=== PATIENT | male | born 1960 | race Two or more races ===

== ENCOUNTER 2024-09-30 09:04 | Emergency (ER) | payer OTHER, MEDICAID, SELFPAY ==
[2024-09-30 09:05] VITALS: BMI 42.5
[2024-09-30 09:35] VITALS: BP 126/82; PULSE 117; RESP 18; TEMP 37.3; O2SAT 97
--- NOTE | 2024-09-30 09:45 | XR_ITS ---
Examination: CT abdomen with intravenous contrast CT pelvis with intravenous contrast 2-D coronal reconstructions 2-D sagittal reconstructions Date and time of exam:September 30, 2024 1325 hours INDICATIONS: Lower abdominal pain with nausea beginning 3 days ago COMPARISON: May 12, 2024 INDICATIONS: History acute diverticulitis with abdominal abscesses, onset lower abdominal pain with nausea beginning 3 days ago. CTDI: vol (mGy) 13.1 DLP: (mGycm) 858 Technique: Multiple axial sections of the abdomen and pelvis have been obtained. 64 slice high-resolution scanner used. 3 mm axial sections have been obtained, post intravenous injection 60 cc [id number] 2-D sagittal, coronal reconstructions obtained. Low dose protocols were performed. One or more of the following dose reduction techniques were used; automated exposure control, adjustment of the mA and/or KV according to patient size, use of iterative reconstruction technique. Findings: No focal liver or splenic lesions Contrast in the stomach, clinical correlation advised No gallstones No pancreatic or adrenal mass Mild right hydronephrosis without definite ureteral calculi No pericecal inflammatory change Marked wall thickening in the sigmoid colon with inflammatory change No definite abscess Mild thickening of urinary bladder wall IMPRESSION: Marked abnormal thickening sigmoid colon with inflammatory change and diverticula, consider acute diverticulitis, underlying malignant neoplasm of the colon not excluded No peridiverticular abscess at this time
--- NOTE | 2024-09-30 09:45 | PD.EDRME ---
Rapid Medical Screening Exam RME Arrival date/time: 09/30/24 09:04 63-year-old male with history of diabetes, anal fistula presents to the Emergency Department today stating he has had fever and passing stool through his urine Chief Complaint: Urogenital-Male Vital signs: Vital Signs Temperature 99.2 F 09/30/24 09:35 Pulse Rate 117 H 09/30/24 09:35 Respiratory Rate 18 09/30/24 09:35 Blood Pressure 126/82 09/30/24 09:35 Pulse Oximetry (%) 97 09/30/24 09:35 Oxygen Delivery Method Room Air 09/30/24 09:35
[2024-09-30 10:05] LABS: Collection Type, Urine Clean Catch; Squamous Epithelial Cell,Urine 0 /hpf (0-5)
[2024-09-30 10:50] LABS: Bacteria,Urine 4+; Bilirubin,Urine Negative (Negative); Blood,Urine 2+ (Negative); Color,Urine Yellow (Lt Yel-Yel); Glucose, Urine 4+ (Negative); Ketones,Urine Negative (Negative); Leukocyte Esterase,Urine Positive (Negative); Nitrite,Urine Negative (Negative); PH,Urine 6.5 (5.0-7.0); Protein,Urine 1+ (Neg - Trace); RBC,Urine 21 /hpf (0-3); Specific Gravity,Urine 1.015 (1.001-1.035); Urobilinogen,Urine Negative mg/dL (0.0-1.0); WBC,Urine 449 /hpf (0-5)
[2024-09-30 10:54] LABS: Clarity,Urine Turbid (Clear/Hazy)
[2024-09-30 11:34] LABS: Lactate (Lactic Acid) 1.8 mMol/L (0.4-2.0)
[2024-09-30 11:39] LABS: Basophils % (Auto) 0 % (0-2.5); Eosinophils # (Auto) 0.1 Thou/mm3 (0.0-0.5); Eosinophils % (Auto) 1 % (0-10); Hematocrit 38.6 % (41.0-53.0); Immature Granulocytes % (Auto) 0 % (0-0); Immature Granulocytes Auto 0.06 Thou/mm3 (0.00-0.00); Lymphocytes # (Auto) 2.6 Thou/mm3 (1.0-4.8); Lymphocytes % (Auto) 19 % (10-50); Mean Corpuscular HGB Conc 33.7 g/dl (31.0-37.0); Mean Corpuscular Volume 86 fL (80-100); Monocytes # (Auto) 1.4 Thou/mm3 (0.0-0.8); Monocytes % (Auto) 10 % (0-12); Neutrophils # (Auto) 9.4 Thou/mm3 (1.8-7.7); Neutrophils % (Auto) 69 % (37-80); Nucleated Red Blood Cell % 0 /100 WBC (0); Platelet Count 270 Thou/mm3 (140-440); RDW Standard Deviation 44.1 fL (35.1-43.9); Red Blood Count 4.48 Miln/mm3 (4.50-5.90); White Blood Count 13.6 Thou/mm3 (3.8-10.6)
[2024-09-30 12:08] LABS: Glucose Estimated Average 105 mg/dL (80-131); Hemoglobin A1C 5.3 % Hgb (4.8-6.0)
[2024-09-30 12:11] VITALS: BP 122/81; PULSE 112; RESP 18; TEMP 37.3; O2SAT 96
--- NOTE | 2024-09-30 12:24 | PD.EDMALE ---
ED Male Genitalurinary RME/HPI General Chief complaint: Urogenital-Male Stated complaint: Pt. 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 This been ongoing for the last 3 days. Patient also complained of on and off low-grade fever. Patient denies any vomiting. Denies any abdominal pain. Denies any other complaints no medications taken prior to arrival. Was seen and followed by Dr. Maya and Dr. Nuñez. Patient had a plan surgery and [facility] that was postponed due to medical clearance problem. Last year. Related Data Home Medications ?Medication ?Instructions ?Recorded ?Confirmed allopurinol 300 mg tablet 300 mg PO DAILY ##0 10/15/12 09/30/24 (Zyloprim) aripiprazole 5 mg tablet (Abilify) 5 mg PO DAILY ##0 10/15/12 09/30/24 ziprasidone HCl 80 mg capsule 80 mg PO BID ##0 10/15/12 09/30/24 (Geodon) venlafaxine 150 mg 150 mg PO BID ##0 12/16/23 09/30/24 capsule,extended release 24 hr (Effexor XR) aripiprazole 30 mg tablet 30 mg PO DAILY 09/30/24 09/30/24 empagliflozin 5 mg-metformin 500 1 tab PO BID 09/30/24 09/30/24 mg tablet (Synjardy) lovastatin 40 mg tablet 40 mg PO DAILY 09/30/24 09/30/24 meloxicam 15 mg tablet 15 mg PO DAILY 09/30/24 09/30/24 Previous Rx's ?Medication ?Instructions ?Recorded ciprofloxacin HCl 500 mg tablet 500 mg PO BID #14 tabs 09/30/24 ibuprofen 800 mg tablet 800 mg PO Q8H PRN pain #30 tabs 09/30/24 Allergies Allergy/AdvReac Type Severity Reaction Status Date / Time No Known Allergies Allergy Verified 12/30/23 13:33 Review of Systems Review of Systems Narrative Review of Systems: Review of system reviewed and within normal limits except mentioned in HPI ED Exam Narrative Physical exam: VITAL SIGNS: Reviewed. GENERAL APPEARANCE: Alert and interactive, follows commands, no acute distress, HEAD AND FACE: Non-traumatic. ENT: PERRL, pink conjunctivitis, eyelid no trauma, Mucous membrane moist. NECK: Supple, nontender, no nuchal rigidity. CHEST: No tenderness, no crepitus, no paradoxical movement, no retractions. LUNGS: Clear, well ventilated, symmetric, no rales, no wheezing, no ronchi, no stridor, good breath sounds bilaterally. HEART: Regular rate, regular rhythm, no murmur, no gallops. ABDOMEN: Soft, positive bowel sounds, nondistended, no guarding, nontender, no rebound, no masses, RECTAL: Deferred. GENITAL: Deferred. NEUROLOGICAL: Gross motor function intact sensory function intact, Appropriate for age. MUSCULOSKELETAL: low back nontender, full range of motion. EXTREMITIES: Nontender, full range of motion. SKIN: Color pink, dry, no rash, no lacerations, no abrasions, no contusions. LYMPHATICS: Deferred. Course Quality Measures none Orders Category Date Time Status CT Screening NOW Care 09/30/24 09:[address] abdomen pelvis w con Stat Exams 09/30/24 09:45 Completed A1C [Glycohemoglobin w (eAG)] Stat Lab 09/30/24 11:12 Completed Blood Culture (Lab) Stat Lab 09/30/24 11:10 Received CBC Stat Lab 09/30/24 11:12 Completed Comprehensive Metabolic Panel Stat Lab 09/30/24 11:12 Completed Lactate (Lactic Acid) Stat Lab 09/30/24 11:12 Completed Lipase Stat Lab 09/30/24 11:12 Completed Procalcitonin Stat Lab 09/30/24 11:12 Completed Urinalysis Stat Lab 09/30/24 09:54 Completed Urine Culture Stat Lab 09/30/24 09:54 Received Piper/Tazo Inj [Zosyn Inj] 3.375 gm Med 09/30/24 12:24 Discontinued SODIUM CHLORIDE 0.9% (Popper) [Ns 0.9% (P)] 50 ml IV X1 Potassium Chloride [K-Dur] Med 09/30/24 12:41 Discontinued 40 meq PO X1 ONE Sodium Chloride 0.9% 1000 ml [Ns] 1,000 ml Med 09/30/24 12:24 Discontinued IV 999 mls/hr Vital Signs Vital signs: Vital Signs Temperature 99.2 F 09/30/24 09:35 Pulse Rate 117 H 09/30/24 09:35 Respiratory Rate 18 09/30/24 09:35 Blood Pressure 126/82 09/30/24 09:35 Pulse Oximetry (%) 97 09/30/24 09:35 Oxygen Delivery Method Room Air 09/30/24 09:35 Urogenital - Male [facility] Narrative [facility] Narrative:: 63-year-old male patient with 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 This been ongoing for the last 3 days. Patient also complained of on and off low-grade fever. Patient denies any vomiting. Denies any abdominal pain. Denies any other complaints no medications taken prior to arrival. Was seen and followed by Dr. Maya and Dr. Nuñez. Patient had a plan surgery and [facility] that was postponed due to medical clearance problem. Last year. Laboratory workup significant for UTI. Potassium 3.0. CT scan of the abdomen and pelvis showed Marked abnormal thickening sigmoid colon with inflammatory change and diverticula, consider acute diverticulitis, underlying malignant neoplasm of the colon not excluded No peridiverticular abscess at this time Results discussed with the patient. Patient received IV fluids, IV Zosyn, I consulted Dr. Nuñez, general surgeon on-call, who is the surgeon of this patient, and told me to give IV antibiotic and send the patient home on p.o. antibiotic and asked the patient to follow-up with [facility] surgeon . Patient data External records reviewed:: None Clinical information provided by:: none Social determinants that could affect healthcare access:: none Patient has the following chronic illnesses:: History of colovesical fistula How is presenting disease/condition affected by chronic disease/condition?: caused by Evaluation data The following diagnostics were reviewed and interpreted by me:: lab results and radiology exam(s) Lab and/or radiology exams considered but not ordered:: None Interpretation Summary: See results in [facility] Medications / Prescriptions Medications or Prescriptions considered but not ordered:: None Medication administrations:: Medication Administration History Discontinued Medications Sodium Chloride (Ns) 1,000 mls @ 999 mls/hr IV .Q1H1M ONE Stop: 09/30/24 13:24 Last Admin: 09/30/24 13:09 Dose: 999 mls/hr Documented By: ANI Piperacillin Sod/Tazobactam (Sod 3.375 gm/ Sodium Chloride) 50 mls @ 100 mls/hr IV X1 ONE Stop: 09/30/24 12:53 Last Infusion: 09/30/24 14:20 Dose: Infused Documented By: Admin: 09/30/24 13:11 Dose: 100 mls/hr Documented By: ANI Potassium Chloride (Potassium Chloride 20 Meq Tabcr) 40 meq PO X1 ONE Stop: 09/30/24 12:42 Last Admin: 09/30/24 13:08 Dose: 40 meq Documented By: ANI Potassium replacement, Zosyn and IV fluids Consultations Consultation(s) initiated? (list below): Yes Consultation #1 (Physician, Specialty, Details): I consulted Dr. Nuñez, general surgeon on-call, discussed the case, and thank you Dr. Diagnosis Urogenital Male Differential Diagnosis: urinary tract infection and urethritis Most likely diagnosis given after review of the tests above:: UTI, colo vesical fistula Admission Indicated Admission indicated?: not indicated Explain why admission is indicated or not indicated:: Stable Admission Request Was there a request for admission?: No Disposition Plan Disposition Plan: Discharge Discharge Attestation Discharge Attestation: The patient and all family members were given an opportunity to ask questions and understood the discharge instructions. Discharge instructions specifically effects, indications for sooner follow up or return to the emergency department, and the expected course of current diagnosis. Patient condition: Stable Discharge Plan Plan Patient Disposition: HOME (Self Care) Disposition Comment: stable Prescriptions/Referrals Prescriptions/Med Rec: New ciprofloxacin HCl 500 mg tablet 500 mg PO BID Qty: 14 0RF ibuprofen 800 mg tablet 800 mg PO Q8H PRN (Reason: pain) Qty: 30 0RF No Action ziprasidone HCl [Geodon] 80 MG capsule 80 mg PO BID Qty: 0 allopurinol [Zyloprim] 300 MG tablet 300 mg PO DAILY Qty: 0 aripiprazole [Abilify] 5 MG tablet 5 mg PO DAILY Qty: 0 venlafaxine [Effexor XR] 150 mg capsule,extended release 24hr 150 mg PO BID Qty: 0 aripiprazole 30 mg tablet 30 mg PO DAILY Patient Comments: TAKE 1 TABLET BY MOUTH EVERY DAY meloxicam 15 mg tablet 15 mg PO DAILY Patient Comments: TAKE 1 TABLET DAILY Synjardy 5-500 mg tablet 1 tab PO BID lovastatin 40 mg tablet 40 mg PO DAILY Patient Comments: TAKE 1 TABLET DAILY Referrals: Debby Pat, SUSTAINABLE SYSTEMS ANALYST [Primary Care Provider] - In 1 week Problem List Clinical Impression: Colovesical fistula, Urinary tract infection Patient/Caregiver Discharge Instructions Discharge Activity: activity as tolerated Education Materials: Understanding Urinary Tract ... Additional Instructions: Thank you for the opportunity for serving you today. You are stable for discharged . You are advised to: Follow-up with [facility], Dr. Torres, as instructed Return to ED for worsening of symptoms Increase oral fluids Take medication as prescribed Print Language: Belarusian Stand Alone Forms: Suzanne Award Info., Patient Portal Info Letter PA/DOG FOOD SHREDDER OPERATOR Supervising Physician PA/DOG FOOD SHREDDER OPERATOR Supervising Physician: MD Sharmaine
[2024-09-30 12:31] LABS: Alanine Aminotransferase 7 U/L (10-49); Albumin, Serum 3.9 gm/dL (3.4-4.8); Albumin/Globulin Ratio 0.9 (1.2-2.2); Alkaline Phosphatase 152 U/L (46-116); Anion Gap 8 (7-16); Aspartate Amino Transferase 10 U/L (0-34); BUN/Creatinine Ratio 13 Ratio (12-20); Bilirubin,Total < 0.2 mg/dL (0.3-1.2); Blood Urea Nitrogen 13 mg/dL (9-23); Calcium 9.4 mg/dL (8.3-10.6); Calcium (Corrected) 9.5 mg/dL (8.5-10.1); Carbon Dioxide 27.2 mMol/L (20.0-31.0); Chloride 100 mMol/L (98-107); Estimated Creatinine Clearance 84.2 mL/min (>60); Globulin 4.2 gm/dL (2.3-3.5); Glucose 85 mg/dL (74-106); Lipase 27 U/L (12-53); Osmolality,Calculated 269 (275-295); Procalcitonin 0.56 ng/ml (0.0-0.49); Sodium 135 mMol/L (136-145); Total Protein 8.1 gm/dL (5.7-8.2); eGFR > 60 See Note
[2024-09-30] MEDS: POTASSIUM CHLORIDE 20 mEq TABCR 40 MEQ PO (13:08)
[2024-09-30] MEDS: SODIUM CHLORIDE 0.9% 1000 ML 1,000 ML 999 ML IV (13:09)
[2024-09-30] MEDS: PIPER/TAZO INJ 3.375 GM in SODIUM CHLORIDE 0.9% (Popper) 50 ML IV (13:11)
[2024-09-30 13:29] VITALS: BP 123/84; PULSE 83; RESP 18; TEMP 37.1; O2SAT 96
[2024-09-30 14:25] VITALS: BP 128/85; PULSE 88; RESP 18; TEMP 37.1; O2SAT 96
[2024-09-30 15:46] VITALS: BP 134/87; PULSE 80; RESP 18; TEMP 37.2; O2SAT 97
== END 2024-09-30 15:49 | disposition home or self-care (01) ==
PROVIDERS: Nurse Practitioner Primary Care; Emergency Provider Emergency Medicine; PCP Nurse Practitioner Family
DX: N32.1 Vesicointestinal fistula (principal); N39.0 Urinary tract infection, site not specified
CPT/HCPCS: 36415; 74177; 80053; 81001; 83036; 83605; 83690; 84145; 85025; 87040; 87077; 87086; 87186; 96361; 96365; 99285; A4649; J2543; J7030; J7050; Q9967; A9270

== ENCOUNTER → 2024-11-08 | Outpatient (BNVA) | payer OTHER, MEDICAID, SELFPAY | END | disposition home or self-care (01) | PROVIDERS: PCP Nurse Practitioner Family; Referring Provider Nurse Practitioner Family; Visit Provider Urology | DX: N40.1 Benign prostatic hyperplasia with lower urinary tract symptoms (principal); N13.8 Other obstructive and reflux uropathy; K57.92 Diverticulitis of intestine, part unspecified, without perforation or abscess without bleeding; F31.9 Bipolar disorder, unspecified; K63.0 Abscess of intestine; N32.1 Vesicointestinal fistula; Z87.440 Personal history of urinary (tract) infections; E78.00 Pure hypercholesterolemia, unspecified; E11.9 Type 2 diabetes mellitus without complications; Z87.891 Personal history of nicotine dependence | CPT/HCPCS: 99212; G0463 ==

== ENCOUNTER 2024-11-24 10:30 | Outpatient (AMB) | payer OTHER, MEDICAID, SELFPAY ==
[2024-11-24 10:37] VITALS: BP 111/76; PULSE 107; RESP 19; TEMP 36.3; O2SAT 96; BMI 37.3
--- NOTE | 2024-11-24 10:37 | PD.GSCLVISIT ---
Vital Signs - [facility] 11/24/24 10:37 Height 1.6 m Height Method Stated Weight 95.424 kg Weight Measurement Method Standing Scale BMI 37.3 BP 111/76 Blood Pressure Source Automatic Cuff Blood Pressure Location Right Upper Arm Position Sitting Respiration 19 Pulse 107 H Pulse Source Monitor Temp 97.3 F Temp Source Temporal Artery Scan Pulse Oximetry (%) 96 Oxygen Delivery Method Room Air Med/Allergies Allergies & Medications Allergies No Known Allergies Allergy (Verified 11/24/24 10:37) Medication Reconciliation allopurinol 300 mg tablet (Zyloprim) 300 mg PO DAILY ##0 10/15/12 [History Confirmed 11/24/24] ziprasidone HCl 80 mg capsule (Geodon) 80 mg PO BID ##0 10/15/12 [History Confirmed 11/24/24] aripiprazole 30 mg tablet 30 mg PO DAILY 09/30/24 [History Confirmed 11/24/24] ciprofloxacin HCl 500 mg tablet 500 mg PO BID #14 tabs 09/30/24 [Rx Confirmed 11/24/24] empagliflozin 5 mg-metformin 500 mg tablet (Synjardy) 1 tab PO BID 09/30/24 [History Confirmed 11/24/24] ibuprofen 800 mg tablet 800 mg PO Q8H PRN pain #30 tabs 09/30/24 [Rx Confirmed 11/24/24] lovastatin 40 mg tablet 40 mg PO DAILY 09/30/24 [History Confirmed 11/24/24] meloxicam 15 mg tablet 15 mg PO DAILY 09/30/24 [History Confirmed 11/24/24] MA Intake Visit Data Collection New Patient or Established: Established Patient (seen at [facility] within 3 years) Reason for Visit:: FISTULA REFERRAL Pain Present Currently: No Pain scale:: 0 Pain Scale Used: [place]ke[place]/Numerical PCP or OBGYN visit in last 3 months: Yes Hx Now: No Do You Feel Safe at Home: Yes Authorities Contacted: N/A Smoking Status Smoking Status: Former smoker Immunization / Flu Flu Vaccine in the Last 12 Months: No Flu Vaccine Exclusion Criteria: No Exclusion Criteria Past Medical History Past Medical History CARDIAC: Positive Hypercholesterolemia; Negative Cardiac Disorders or Congestive Heart Failure RESPIRATORY: Negative Chronic Obstructive Pulmonary Disease (COPD) or Asthma GASTROINTESTINAL: Positive Diverticulitis and Diverticulosis GENITOURINARY: Positive Kidney Stones; Negative Renal Disease MUSCULOSKELETAL: Positive Rheumatoid Arthritis and Gout ENDOCRINE: Positive Diabetes Mellitus Type 2 (TAKING SYNJARDY 5-500MG); Negative Diabetes Mellitus Type 1 HEMATOLOGIC: Negative Sickle Cell Disease PSYCHO/SOCIAL: Positive Bipolar Disorder Social History SMOKING STATUS: Smoking status: Former smoker SUBSTANCE USE: Substance use type: marijuana ALCOHOL: Alcohol Intake: Former Travel Risk Travel Hx Recent Travel: No HPI HPI Narrative 64M with HLD, DMII, gout, bipolar disorder and colovesicular fistula who presented to 10/22/24 with pelvic abscesses and bilateral hydronephrosis, s/p bilateral nephrostomy tube placement 10/23/24 followed by laparoscopic colostomy 10/25/[address] Healy, referred here for follow up as pt is unable to follow up with his providers at due to insurance issues. Pt states he is still having lower abdominal pain and fecaluria but is improved compared to before his diversion. His appetite has not fully returned so he is taking protein shakes but he is having regular colostomy output and his states she is managing the appliance well since she has been taught by visiting nurses. Pt had been initially referred to [facility] and planned for surgery by Dr Christianson last year but per his he failed the preoperative tests including EKG. Pt subsequently was seen by Dr Avendaño crozer in [place] and advised that he had acceptable risk for surgery but no longer had transportation to [facility]. Pt had also been seen by Dr Nuñez last year, but per the pt was declining preoperative colonoscopy (he had been told it could be life-threatening in the setting of diverticulitis). Pt does follow with Dr Maya and has another appt in December Pt is under the impression he had a colonoscopy during his recent hospitalization at but on my chart review there is no record of that, and I would not expect him to have had one in the setting of active inflammation PMH: HLD, DMII, gout, bipolar disorder PSHx: Laparoscopic colostomy and bilateral nephrostomy tube placement 09/2024 Meds: No antiplt or anticoagulation Allergies: NKDA Family hx: brother had bone CA ROS Review of Systems Systems Reviewed: All systems reviewed, normal except as documented Objective/Exam General General Appearance: alert, cooperative and well groomed Resp Respiratory exam: Absent respiratory distress Abdominal Abdominal exam: Present soft; Absent distention or tenderness Results [facility] records reviewed Assessment & Plan Diagnosis / Problem List (1) Diverticulitis of large intestine with perforation and abscess without bleeding: Status: Acute Assessment & Plan: 64M with HLD, DMII, gout, bipolar disorder and colovesicular fistula who presented to 10/22/24 with pelvic abscesses and bilateral hydronephrosis, s/p bilateral nephrostomy tube placement 10/23/24 followed by laparoscopic colostomy 10/25/[address] Healy, referred here for follow up as pt is unable to follow up with his providers at due to insurance issues. I explained that definitive surgery will entail sigmoidectomy and bladder repair, and pt had already been advised that it would likely be a year or so before this could safely be undertaken. I discussed the possibility of again attempting to refer to a tertiary center where urology could be involved but pt and state that traveling for surgery is too burdensome. I will continue to follow the pt, monitoring for improvement in symptoms and discuss risks/benefits of sigmoidectomy as he improves Plan: Follow up in 3 months Office Procedures GNS Level of Care Nursing/Assessment Patient Status: Established Patient Nursing Assessment/Reassesment: Medication Reconciliation, Update PMH in EMR and Vital Signs Coordination of Care: Complex Care and Chronic Disease 1-5, Education Complex Pt/Fam, Consent,records obtained, informed consent, Lab and Imaging orders, Results/Orders obtained and Staff clarify orders Established Patient Charge Established Patient Point Assignment: 110 Established Patient Point Charge: EP Level 3 (80-115) Patient Portal Questionaires Social History Living Situation History Housing Other:: Ex Tobacco History Smoking Status: Former smoker Alcohol History Alcohol Intake: Former Substance Use History Substance Use: Marijuana Domestic Abuse History Do You Feel Safe at Home: Yes Review of Systems Report any current symptoms Only answer those that you have currently: Past Medical History Past Medical History Have you ever been diagnosed with any of the following: Cardiology Problems Hypercholesterolemia: Yes Congestive Heart Failure: No Respiratory Problems Chronic Obstructive Pulmonary Disease (COPD): No Asthma: No Stomache/Intestinal Problems Diverticulitis: Yes Diverticulosis: Yes Genital/Urinary Problems Renal Disease: No Kidney Stones: Yes Musculoskeletal Problems Rheumatoid Arthritis: Yes Gout: Yes Endocrine Problems Diabetes Mellitus Type 1: No Diabetes Mellitus Type 2: Yes (TAKING SYNJARDY 5-500MG) Blood Problems Sickle Cell Disease: No Psychologic Problems Bipolar Disorder: Yes
== END 2024-11-24 10:55 | disposition home or self-care (01) ==
LOC: HODSRG 10:30
PROVIDERS: PCP Nurse Practitioner Family; Referring Provider Nurse Practitioner Family; Supervising Provider Surgery; Visit Provider Surgery
DX: K57.20 Diverticulitis of large intestine with perforation and abscess without bleeding (principal)
CPT/HCPCS: 99213; G0463

== ENCOUNTER → 2025-02-08 | Outpatient (BNVA) | payer OTHER, MEDICAID, SELFPAY | END | disposition home or self-care (01) | PROVIDERS: PCP Nurse Practitioner Family; Referring Provider Nurse Practitioner Family; Visit Provider Urology | DX: N40.1 Benign prostatic hyperplasia with lower urinary tract symptoms (principal); N13.8 Other obstructive and reflux uropathy; K57.92 Diverticulitis of intestine, part unspecified, without perforation or abscess without bleeding; K63.0 Abscess of intestine; F31.9 Bipolar disorder, unspecified; E66.9 Obesity, unspecified; Z68.41 Body mass index [BMI] 40.0-44.9, adult; E11.9 Type 2 diabetes mellitus without complications; E78.00 Pure hypercholesterolemia, unspecified; Z93.6 Other artificial openings of urinary tract status; Z93.3 Colostomy status | CPT/HCPCS: 99212; G0463 ==

== ENCOUNTER 2025-02-21 09:22 | Outpatient (AMB) | payer MEDICARE, MEDICAID, SELFPAY ==
--- NOTE | 2025-02-21 09:28 | PD.GSCLVISIT ---
Vital Signs - [facility] 02/21/25 09:32 Height 1.6 m Height Method Measured Weight 102.625 kg Weight Measurement Method Standing Scale BMI 40.1 BP 106/67 Blood Pressure Source Automatic Cuff Blood Pressure Location Right Upper Arm Position Sitting Respiration 18 Pulse 96 Pulse Source Monitor Temp 97.7 F Temp Source Temporal Artery Scan Pulse Oximetry (%) 94 L Oxygen Delivery Method Room Air Med/Allergies Allergies & Medications Allergies No Known Allergies Allergy (Verified 02/21/25 09:32) Medication Reconciliation allopurinol 300 mg tablet (Zyloprim) 300 mg PO DAILY ##0 10/15/12 [History Confirmed 02/21/25] ziprasidone HCl 80 mg capsule (Geodon) 80 mg PO BID ##0 10/15/12 [History Confirmed 02/21/25] aripiprazole 30 mg tablet 30 mg PO DAILY 09/30/24 [History Confirmed 02/21/25] ciprofloxacin HCl 500 mg tablet 500 mg PO BID #14 tabs 09/30/24 [Rx Confirmed 02/21/25] empagliflozin 5 mg-metformin 500 mg tablet (Synjardy) 1 tab PO BID 09/30/24 [History Confirmed 02/21/25] ibuprofen 800 mg tablet 800 mg PO Q8H PRN pain #30 tabs 09/30/24 [Rx Confirmed 02/21/25] lovastatin 40 mg tablet 40 mg PO DAILY 09/30/24 [History Confirmed 02/21/25] meloxicam 15 mg tablet 15 mg PO DAILY 09/30/24 [History Confirmed 02/21/25] finerenone 20 mg tablet 20 mg PO QDAY 02/08/25 [History Confirmed 02/21/25] MA Intake Visit Data Collection New Patient or Established: Established Patient (seen at [facility] within 3 years) Seen by Clinical Staff ONLY (RN/MA): No Reason for Visit:: F/U PAIN Pain Present Currently: No Pain scale:: 0 Pain Scale Used: [place]ke[place]/Numerical PCP or OBGYN visit in last 3 months: Yes Hx Now: No Do You Feel Safe at Home: Yes Authorities Contacted: N/A Smoking Status Smoking Status: Former smoker Immunization / Flu Flu Vaccine in the Last 12 Months: No Flu Vaccine Exclusion Criteria: No Exclusion Criteria Past Medical History Past Medical History CARDIAC: Positive Hypercholesterolemia; Negative Cardiac Disorders or Congestive Heart Failure RESPIRATORY: Negative Chronic Obstructive Pulmonary Disease (COPD) or Asthma GASTROINTESTINAL: Positive Diverticulitis and Diverticulosis GENITOURINARY: Positive Kidney Stones; Negative Renal Disease MUSCULOSKELETAL: Positive Rheumatoid Arthritis and Gout ENDOCRINE: Positive Diabetes Mellitus Type 2 (TAKING SYNJARDY 5-500MG); Negative Diabetes Mellitus Type 1 HEMATOLOGIC: Negative Sickle Cell Disease PSYCHO/SOCIAL: Positive Bipolar Disorder Social History SMOKING STATUS: Smoking status: Former smoker ALCOHOL: Alcohol Intake: Former HPI HPI Narrative 64M with HLD, DMII, gout, bipolar disorder and colovesicular fistula who presented to 10/22/24 with pelvic abscesses and bilateral hydronephrosis, s/p bilateral nephrostomy tube placement 10/23/24 followed by laparoscopic colostomy 10/25/[address] Healy, referred here for follow up as pt is unable to follow up with his providers at due to insurance issues. Since last visit pt needed to have his left nephrostomy tube replaced but it is now functioning well as is his R nephrostomy. He is still urinating normally and having dysuria but states he no longer notices the fecaluria. He has also noted a bulge to the superior aspect of his colostomy but it is not painful and his colostomy is functioning well. He is overall feeling well and eating very well, to the point that he has gained around 16lbs in the last few months. Pt was seen by Dr Maya earlier this month and was advised to follow up at either or [facility] but pt still prefers not to travel that far for surgery if it can be avoided ROS Review of Systems Systems Reviewed: All systems reviewed, normal except as documented Objective/Exam General General Appearance: alert, cooperative and well groomed Resp Respiratory exam: Absent respiratory distress Abdominal Abdominal exam: Present soft, hernia (likely parastomal hernia superior to colostomy, no tenderness to palpation) and other (colostomy pink with brown stool in appliance); Absent distention or tenderness Assessment & Plan Diagnosis / Problem List (1) Diverticulitis of large intestine with perforation and abscess without bleeding: Status: Acute Assessment & Plan: 64M with HLD, DMII, gout, bipolar disorder and colovesicular fistula who presented to 10/22/24 with pelvic abscesses and bilateral hydronephrosis, s/p bilateral nephrostomy tube placement 10/23/24 followed by laparoscopic colostomy 10/25/[address] Healy, referred here for follow up as pt is unable to follow up with his providers at due to insurance issues. I explained to pt that a preoperative colonoscopy is mandatory and I will scope via anus as well as the ostomy. Given the degree of inflammation on his initial surgery he was advised he should wait a year for definitive surgery and I agree this timeline is ideal to minimize the risks of complications. In the meantime I recommended he start to improve his diet with more fruits and veggies and be more active with the goal of losing weight. Pt expressed understanding and is agreeable with this plan Plan: Diagnostic colonoscopy in 2025 in preparation for sigmoidectomy 09/2025 Will follow up in 3 months to assess weight loss (2) Colovesical fistula: Status: Acute Assessment & Plan: I explained that during surgery he will require bladder repair and an indwelling ortiz for at least two weeks. Once his bladder has healed after surgery his nephrostomy tubes can be removed Office Procedures GNS Level of Care Nursing/Assessment Patient Status: Established Patient Nursing Assessment/Reassesment: Medication Reconciliation, Update PMH in EMR and Vital Signs Coordination of Care: Complex Care and Chronic Disease 1-5, Consent,records obtained, informed consent, Education Simp Pt/Fam, Results/Orders obtained and Staff clarify orders Established Patient Charge Established Patient Point Assignment: 90 Established Patient Point Charge: EP Level 3 (80-115) Patient Portal Questionaires Social History Living Situation History Housing Other:: Ex Tobacco History Smoking Status: Former smoker Alcohol History Alcohol Intake: Former Substance Use History Substance Use: Marijuana Domestic Abuse History Do You Feel Safe at Home: Yes Review of Systems Report any current symptoms Only answer those that you have currently: Past Medical History Past Medical History Have you ever been diagnosed with any of the following: Cardiology Problems Hypercholesterolemia: Yes Congestive Heart Failure: No Respiratory Problems Chronic Obstructive Pulmonary Disease (COPD): No Asthma: No Stomache/Intestinal Problems Diverticulitis: Yes Diverticulosis: Yes Genital/Urinary Problems Renal Disease: No Kidney Stones: Yes Musculoskeletal Problems Rheumatoid Arthritis: Yes Gout: Yes Endocrine Problems Diabetes Mellitus Type 1: No Diabetes Mellitus Type 2: Yes (TAKING SYNJARDY 5-500MG) Blood Problems Sickle Cell Disease: No Psychologic Problems Bipolar Disorder: Yes
[2025-02-21 09:32] VITALS: BP 106/67; PULSE 96; RESP 18; TEMP 36.5; O2SAT 94; BMI 40.1
== END 2025-02-21 10:20 | disposition home or self-care (01) ==
LOC: HODSRG 09:22
PROVIDERS: PCP Nurse Practitioner Family; Referring Provider Nurse Practitioner Family; Supervising Provider Orthopaedic Surgery Adult Reconstructive Orthopaedic Surgery; Visit Provider Orthopaedic Surgery Adult Reconstructive Orthopaedic Surgery
DX: K57.20 Diverticulitis of large intestine with perforation and abscess without bleeding (principal); N32.1 Vesicointestinal fistula; E78.00 Pure hypercholesterolemia, unspecified; E11.9 Type 2 diabetes mellitus without complications
CPT/HCPCS: 99213; G0463

== ENCOUNTER → 2025-04-12 | Outpatient (CLI) | payer MEDICARE, MEDICAID, SELFPAY | END | disposition home or self-care (01) | LOC: SWHD 14:03 | PROVIDERS: PCP Nurse Practitioner Family; Referring Provider Nurse Practitioner Family; Visit Provider Surgery | DX: T81.89XA Other complications of procedures, not elsewhere classified, initial encounter (principal); S31.101A Unspecified open wound of abdominal wall, left upper quadrant without penetration into peritoneal cavity, initial encounter; X58.XXXA Exposure to other specified factors, initial encounter; N32.1 Vesicointestinal fistula; F15.21 Other stimulant dependence, in remission; E11.69 Type 2 diabetes mellitus with other specified complication; Z79.84 Long term (current) use of oral hypoglycemic drugs; F41.9 Anxiety disorder, unspecified; M10.9 Gout, unspecified; M06.9 Rheumatoid arthritis, unspecified; Z87.891 Personal history of nicotine dependence | CPT/HCPCS: 99212; G0463 ==